=== PATIENT | male | born 1965 | race Hispanic/Latino ===

== ENCOUNTER → 2019-12-11 | Outpatient (CLI) | payer BC | END | disposition home or self-care (01) | LOC: OIH 09:27 | PROVIDERS: ATTEND Internal Medicine Gastroenterology | DX: M47.814 Spondylosis without myelopathy or radiculopathy, thoracic region (principal); R63.4 Abnormal weight loss | CPT/HCPCS: 71046 ==

== ENCOUNTER → 2020-02-01 | Outpatient (CLI) | payer BC | END | disposition home or self-care (01) | LOC: RAH 10:06 | PROVIDERS: ATTEND Internal Medicine Gastroenterology | DX: R13.12 Dysphagia, oropharyngeal phase (principal); R11.2 Nausea with vomiting, unspecified | CPT/HCPCS: 78264; A9541 ==

== ENCOUNTER → 2020-03-22 | Outpatient (CLI) | payer BC ==
--- NOTE | 2020-03-22 12:00 | NUR ---
MBSS COMPLETED. NON-TRANSIENT PENETRATION WITH LIQUIDS DURING MBSS. RECOMMEND MECHANICAL SOFT/CHOPPED, PUDDING-THICK LIQUIDS; PILLS CRUSHED. RECOMMENDATIONS: 1. NEUROLOGY CONSULT 2. SKILLED SPEECH THERAPY 2-3XWK TARGETING SWALLOWING SPANISH TRANSLATOR PROVIDED RESULTS AND RECOMMENDATIONS VIA VERBAL AND WRITTEN MODALITY. ALL QUESTIONS ANSWERED AT THIS TIME. SPANISH TRANSLATOR DEMONSTRATED HOW TO REACH PUDDING-THICK LIQUIDS. SPANISH TRANSLATOR PROVIDED CAN OF THICKENER AT THIS TIME. Pt VERBALIZED UNDERSTANDING AND COMPLIANCE WITH RECOMMENDATIONS. SPANISH TRANSLATOR PROVIDED HOSPITAL EXTENSION IN CASE OF QUESTIONS. Addendum: 03/22/20 at 1556 by CHAN BRANNON, [facility] Amended: Links added.
== END | disposition home or self-care (01) ==
LOC: RAH 11:18
PROVIDERS: ATTEND Internal Medicine Gastroenterology
DX: R13.13 Dysphagia, pharyngeal phase (principal)
CPT/HCPCS: 74230; 92611